=== PATIENT | female | born 1965 ===

== ENCOUNTER 2017-04-19 20:49 | Emergency (ER) | payer OTHER ==
--- NOTE | 2017-04-19 21:43 | DIAGNOSTIC IMAGING REPORT ---
PROCEDURE: XR TOE - LEFT (fifth toe) INDICATION: TRAUMA/INJURY TECHNIQUE: Three views. COMPARISON: None. FINDINGS: Osseous structures and joint spaces are normal. IMPRESSION: 1. Normal left fifth toe.
--- NOTE | 2017-04-19 21:44 | ED ORDER SUMMARY ---
..... Patient: ALLEN, MAUDE E OrderSheet [facility] VisitID: [id number] [place] [address] 51y, F Registration Date/Time: 04/19/2017 ORDER SHEET Weight: 111.1 kg (stated) Allergies: Celebrex, Cilantro, Icy Hot, Spironolactone, Tape, Vicodin GENERAL ORDERS: Toe Left Urgent (21:13 04/19/2017 Sheeba P.A.-C) (Ack 21:18 AMcQuoid ER Tech1) (21:39 RFay) Martinez Tape Toes (21:44 04/19/2017 Sheeba Bustamante.A.-C) (22:08 Jennifer Elder) MEDICATION ORDERS: IV FLUIDS: ORDER SHEET NOTES: [Electronically signed by Ria Bernstein R.N. (22:12 04/19/2017)] [Electronically signed by Rina BridgesABronson-Mary Beth (22:17 04/19/2017)] [Electronically locked/signed by Ria Bernstein R.N. (22:12 04/19/2017)]
--- NOTE | 2017-04-19 21:44 | ED ORDER SUMMARY ---
..... Patient: ALLEN, MAUDE E OrderSheet [facility] VisitID: [id number] [place] [address] 51y, F Registration Date/Time: 04/19/2017 ORDER SHEET Weight: 111.1 kg (stated) Allergies: Celebrex, Cilantro, Icy Hot, Spironolactone, Tape, Vicodin GENERAL ORDERS: Toe Left Urgent (21:13 04/19/2017 Sheeba P.A.-C) (Ack 21:18 AMcQuoid ER Tech1) (21:39 RFay) Martinez Tape Toes (21:44 04/19/2017 Sheeba Bustamante.A.-C) (22:08 Jennifer Elder) MEDICATION ORDERS: IV FLUIDS: ORDER SHEET NOTES: [Electronically signed by Ria Bernstein R.N. (22:12 04/19/2017)] [Electronically signed by Rina BridgesABronson-Mary Beth (22:17 04/19/2017)] [Electronically locked/signed by Ria Bernstein R.N. (22:12 04/19/2017)]
--- NOTE | 2017-04-19 21:44 | ED CLINICAL REPORT ---
Clinical Report - Physicians/Mid Levels [facility] [address] [place] [address] 04/19/2017 20:51 Patient: MAUDE ALLEN Time Seen: 21:14 Apr 19 2017. Arrived- By private vehicle. Historian- patient. HISTORY OF PRESENT ILLNESS Chief Complaint: Injury to the left 5th (small) toe. The injury happened just prior to arrival. The patient sustained a direct blow and crush injury. Occurred at home. (Patient reports stubbing her left small toe into furniture that they recently rearranged. Patient was not wearing shoes at the time. sHe denies prior injury to the left small toe. NO bleeding.). REVIEW OF SYSTEMS No tingling. She has no pain on weight bearing. All systems otherwise negative, except as recorded above. PAST HISTORY The patient has had a prior injury to the same area. SOCIAL HISTORY No alcohol use. ADDITIONAL NOTES The nursing notes have been reviewed. PHYSICAL EXAM Vital Signs: 04/19/2017 20:56 BP: 152/99. HR: 91. RR: 17. O2 saturation: 99%. Temp: 97.6 F. Pain level now: 8/10. Appearance: Alert. Head: Head atraumatic. ENT: Nose normal. Neck: Normal inspection. CVS: Normal heart rate and rhythm. Heart sounds normal. Respiratory: No respiratory distress. Breath sounds normal. Skin: Skin intact. Skin warm. Extremities: Left dorsal foot. No tenderness or laceration. Left fifth toe: mild tenderness and swelling and small ecchymosis. (no nail injury). No ankle injury. Gait: Limping gait. Neuro, Vascular and Tendons: Vascular status intact. Motor intact. Neuro: Oriented X 3. LABS, X-RAYS, AND EKG Lt Toes X-ray: (IMPRESSION: 1. Normal left fifth toe. Electronically Final signed by:Caleb Khan MD 04/19/2017 9:37:08 PM). PROGRESS AND PROCEDURES Course of Care: ecchymosis of the proximal left toe, fifth digit. No laceration and nail bed injury. Patient has medications at home for pain, asked to use anti-inflammatory, as well as Motrin as needed. No other injuries. Instructed not to drive and take narcotics. Patient is stable. Symptoms better. Patient/family counseled. Disposition: Discharged. Condition: good. CLINICAL IMPRESSION Contusion to the left 5th toe. Crush injury to the left 5th toe. INSTRUCTIONS Apply ice. You may walk and bear weight as tolerated. (your xray looks great). (Electronically signed by Rina Bridges P.A.-C 04/19/2017 22:17)
--- NOTE | 2017-04-19 21:44 | ED NURSING NOTES ---
Clinical Report - Nurses [facility] [address] [place] [address] 04/19/2017 20:51 Patient: MAUDE ALLEN TRIAGE Triage time 20:56 Apr 19 2017. Acuity: LEVEL 5. Chief Complaint: LEFT LOWER EXTREMITY PAIN and SWELLING. Location of symptoms- left 5th toe (pt reports stubbing her toe on furniture today at [address], pts 5th toe is bruised, pt "I took an extra percocet 10 and it isn't touching the pain"). Alert. No acute distress. SEPSIS SCREEN: Sepsis Screen. Negative (no infection suspected/documented). --21:02 Krystle Snowden R.N. 20:56 04/19/17. BP: 152/99. HR: 91. RR: 17. O2 saturation: 99%. Temp: 97.6 F. Pain level now: 05/14. --21:02 Krystle Snowden R.N. Weight: 111.1 kg stated. Height/Length: 64 inches Per Patient. BMI: 42.1. --21:00 Krystle Snowden R.N. Medications Atorvastatin Calcium Oral (Tablet 10 mg) 1/2 tablet, daily. Cymbalta Oral. Lisinopril Oral (Tablet 10 mg) 1 tablet, daily. OxyCODONE HCl Oral (Tablet 10 mg) 1 tablet, 3x a day. TraZODone HCl Oral (Tablet 150 mg) 1 tablet, daily. --20:59 Krystle Snowden R.N. Medication/allergy information source: the patient. --21:02 Krystle Snowden R.N. Allergies Celebrex. Cilantro. Icy Hot. Spironolactone. Tape. Vicodin. --20:59 Krystle Snowden R.N. History Arrived by private vehicle. Historian: patient. Injury occurred. This occurred today. Occurred at home. She has had trouble walking. 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 PAST MEDICAL HX: Tetanus status: up-to-date. Immunizations: up-to-date. The patient has had a hysterectomy. SOCIAL HX: Smoker- current status unknown (cigarette). No alcohol use or drug use. No infectious disease exposure. ABUSE ASSESSMENT: No report of abuse. SELF HARM ASSESSMENT: A self harm assessment was performed. The patient answered "no" to the question "Do you have thoughts of harming or killing yourself?". FALL RISK ASSESSMENT: Fall risk assessment completed. No fall risk identified. NUTRITIONAL RISK ASSESSMENT: The nutritional risk assessment revealed no deficiencies. FUNCTIONAL ASSESSMENT: Functional assessment: no impairments noted. LEARNING NEEDS ASSESSMENT: The learning needs assessment revealed no barriers. SKIN INTEGRITY ASSESSMENT: Skin integrity risk assessment completed. No skin integrity risk identified. --21:02 Krystle Snowden R.N. PROBLEMS: Abscess [Chronic]. --20:59 Krystle Snowden R.N. Abscess. UTI - Urinary Tract Infection. Leukocytosis. Renal Failure. Hyperkalemia. Laceration. Syncope. Hypotension. Wrist Fracture. Hypertension. Chest Wall Pain. Carpal Tunnel Syndrome. Depression. Neck Pain. --20:59 Krystle Snowden R.N. Sepsis [RuleOut]. --20:59 Krystle Snowden R.N. ADDITIONAL SURGERIES: Hysterectomy. Oophorectomy. --20:59 Krystle Snowden R.N. PHYSICAL ASSESSMENT Ambulatory to room. GENERAL / NEURO / PSYCH: Oriented X 4. Alert. Appears in no acute distress. Appears in pain. EXTREMITIES: Extremity pulses are within normal limits. Neuro-vascular status intact to the extremity. No lower extremity edema. Left fifth toe: ecchymosis. SKIN: Skin intact. Skin is warm and dry. --21:02 Krystle Snowden R.N. NURSING PROGRESS NOTES Patient identifiers checked. Call light placed in reach. Side rails up. Bed placed in lowest position. Brakes of bed on. Patient ready for evaluation- chart flagged. Patient waiting for evaluation. --21:03 Krystle Snowden R.N. 21:55. ( Left 4th and 5th toes tera-taped together.). --22:09 Ria Bernstein R.N. DISPOSITION / DISCHARGE 22:00. Condition at departure: improved. No learning barriers present. Patient verbalized understanding. Written instructions provided in Faroese. The patient was discharged home. She left the Emergency Department ambulatory and via private vehicle. Patient driving. Medication list reviewed and validated. --22:11 Ria Bernstein R.N. 22:00 04/19/17. BP: 140/92. HR: 94. RR: 20. O2 saturation: 98%. Temp: deferred. Pain level now: 04/13. 20:56 04/19/17. BP: 152/99. HR: 91. RR: 17. O2 saturation: 99%. Temp: 97.6 F. Pain level now: 05/14. --22:11 Ria Bernstein R.N. Locked/Released at 04/19/2017 22:12 by Ria Bernstein R.N.
--- NOTE | 2017-04-19 21:44 | ED NURSING NOTES ---
Clinical Report - Nurses [facility] [address] [place] [address] 04/19/2017 20:51 Patient: MAUDE ALLEN TRIAGE Triage time 20:56 Apr 19 2017. Acuity: LEVEL 5. Chief Complaint: LEFT LOWER EXTREMITY PAIN and SWELLING. Location of symptoms- left 5th toe (pt reports stubbing her toe on furniture today at [address], pts 5th toe is bruised, pt "I took an extra percocet 10 and it isn't touching the pain"). Alert. No acute distress. SEPSIS SCREEN: Sepsis Screen. Negative (no infection suspected/documented). --21:02 Krystle Snowden R.N. 20:56 04/19/17. BP: 152/99. HR: 91. RR: 17. O2 saturation: 99%. Temp: 97.6 F. Pain level now: 05/14. --21:02 Krystle Snowden R.N. Weight: 111.1 kg stated. Height/Length: 64 inches Per Patient. BMI: 42.1. --21:00 Krystle Snowden R.N. Medications Atorvastatin Calcium Oral (Tablet 10 mg) 1/2 tablet, daily. Cymbalta Oral. Lisinopril Oral (Tablet 10 mg) 1 tablet, daily. OxyCODONE HCl Oral (Tablet 10 mg) 1 tablet, 3x a day. TraZODone HCl Oral (Tablet 150 mg) 1 tablet, daily. --20:59 Krystle Snowden R.N. Medication/allergy information source: the patient. --21:02 Krystle Snowden R.N. Allergies Celebrex. Cilantro. Icy Hot. Spironolactone. Tape. Vicodin. --20:59 Krystle Snowden R.N. History Arrived by private vehicle. Historian: patient. Injury occurred. This occurred today. Occurred at home. She has had trouble walking. 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 PAST MEDICAL HX: Tetanus status: up-to-date. Immunizations: up-to-date. The patient has had a hysterectomy. SOCIAL HX: Smoker- current status unknown (cigarette). No alcohol use or drug use. No infectious disease exposure. ABUSE ASSESSMENT: No report of abuse. SELF HARM ASSESSMENT: A self harm assessment was performed. The patient answered "no" to the question "Do you have thoughts of harming or killing yourself?". FALL RISK ASSESSMENT: Fall risk assessment completed. No fall risk identified. NUTRITIONAL RISK ASSESSMENT: The nutritional risk assessment revealed no deficiencies. FUNCTIONAL ASSESSMENT: Functional assessment: no impairments noted. LEARNING NEEDS ASSESSMENT: The learning needs assessment revealed no barriers. SKIN INTEGRITY ASSESSMENT: Skin integrity risk assessment completed. No skin integrity risk identified. --21:02 Krystle Snowden R.N. PROBLEMS: Abscess [Chronic]. --20:59 Krystle Snowden R.N. Abscess. UTI - Urinary Tract Infection. Leukocytosis. Renal Failure. Hyperkalemia. Laceration. Syncope. Hypotension. Wrist Fracture. Hypertension. Chest Wall Pain. Carpal Tunnel Syndrome. Depression. Neck Pain. --20:59 Krystle Snowden R.N. Sepsis [RuleOut]. --20:59 Krystle Snowden R.N. ADDITIONAL SURGERIES: Hysterectomy. Oophorectomy. --20:59 Krystle Snowden R.N. PHYSICAL ASSESSMENT Ambulatory to room. GENERAL / NEURO / PSYCH: Oriented X 4. Alert. Appears in no acute distress. Appears in pain. EXTREMITIES: Extremity pulses are within normal limits. Neuro-vascular status intact to the extremity. No lower extremity edema. Left fifth toe: ecchymosis. SKIN: Skin intact. Skin is warm and dry. --21:02 Krystle Snowden R.N. NURSING PROGRESS NOTES Patient identifiers checked. Call light placed in reach. Side rails up. Bed placed in lowest position. Brakes of bed on. Patient ready for evaluation- chart flagged. Patient waiting for evaluation. --21:03 Krystle Snowden R.N. 21:55. ( Left 4th and 5th toes tera-taped together.). --22:09 Ria Bernstein R.N. DISPOSITION / DISCHARGE 22:00. Condition at departure: improved. No learning barriers present. Patient verbalized understanding. Written instructions provided in Kittitian. The patient was discharged home. She left the Emergency Department ambulatory and via private vehicle. Patient driving. Medication list reviewed and validated. --22:11 Ria Bernstein R.N. 22:00 04/19/17. BP: 140/92. HR: 94. RR: 20. O2 saturation: 98%. Temp: deferred. Pain level now: 04/13. 20:56 04/19/17. BP: 152/99. HR: 91. RR: 17. O2 saturation: 99%. Temp: 97.6 F. Pain level now: 05/14. --22:11 Ria Bernstein R.N. Locked/Released at 04/19/2017 22:12 by Ria Bernstein R.N.
--- NOTE | 2017-04-19 21:44 | ED CLINICAL REPORT ---
Clinical Report - Physicians/Mid Levels [facility] [address] [place] [address] 04/19/2017 20:51 Patient: MAUDE ALLEN Time Seen: 21:14 Apr 19 2017. Arrived- By private vehicle. Historian- patient. HISTORY OF PRESENT ILLNESS Chief Complaint: Injury to the left 5th (small) toe. The injury happened just prior to arrival. The patient sustained a direct blow and crush injury. Occurred at home. (Patient reports stubbing her left small toe into furniture that they recently rearranged. Patient was not wearing shoes at the time. sHe denies prior injury to the left small toe. NO bleeding.). REVIEW OF SYSTEMS No tingling. She has no pain on weight bearing. All systems otherwise negative, except as recorded above. PAST HISTORY The patient has had a prior injury to the same area. SOCIAL HISTORY No alcohol use. ADDITIONAL NOTES The nursing notes have been reviewed. PHYSICAL EXAM Vital Signs: 04/19/2017 20:56 BP: 152/99. HR: 91. RR: 17. O2 saturation: 99%. Temp: 97.6 F. Pain level now: 8/10. Appearance: Alert. Head: Head atraumatic. ENT: Nose normal. Neck: Normal inspection. CVS: Normal heart rate and rhythm. Heart sounds normal. Respiratory: No respiratory distress. Breath sounds normal. Skin: Skin intact. Skin warm. Extremities: Left dorsal foot. No tenderness or laceration. Left fifth toe: mild tenderness and swelling and small ecchymosis. (no nail injury). No ankle injury. Gait: Limping gait. Neuro, Vascular and Tendons: Vascular status intact. Motor intact. Neuro: Oriented X 3. LABS, X-RAYS, AND EKG Lt Toes X-ray: (IMPRESSION: 1. Normal left fifth toe. Electronically Final signed by:Caleb Khan MD 04/19/2017 9:37:08 PM). PROGRESS AND PROCEDURES Course of Care: ecchymosis of the proximal left toe, fifth digit. No laceration and nail bed injury. Patient has medications at home for pain, asked to use anti-inflammatory, as well as Motrin as needed. No other injuries. Instructed not to drive and take narcotics. Patient is stable. Symptoms better. Patient/family counseled. Disposition: Discharged. Condition: good. CLINICAL IMPRESSION Contusion to the left 5th toe. Crush injury to the left 5th toe. INSTRUCTIONS Apply ice. You may walk and bear weight as tolerated. (your xray looks great). (Electronically signed by Rina Bridges P.A.-C 04/19/2017 22:17)
--- NOTE | 2017-04-19 22:17 | ED MED RECONCILIATION SUMMARY ---
Patient: MAUDE ALLEN Medication Reconciliation Report [facility] VisitID: [id number] [place] [address] 51y, F Registration Date/Time: 04/19/2017 Weight: 111.1 kg Height/Length: 64 in. BMI: 42.1 ALLERGIES: Celebrex, Cilantro, Icy Hot, Spironolactone, Tape, Vicodin The patient's Home Medications are listed below: THE FOLLOWING MEDICATIONS NEED TO BE RECONCILED: Atorvastatin Calcium Oral (10 mg) 1/2 tablet, daily Cymbalta Oral Lisinopril Oral (10 mg) 1 tablet, daily OxyCODONE HCl Oral (10 mg) 1 tablet, 3x a day TraZODone HCl Oral (150 mg) 1 tablet, daily The source(s) of the original Home Medication information: patient The following Medications were given to the patient in the Emergency Department: None. The following Medications were prescribed to the patient: None.
--- NOTE | 2017-04-19 22:17 | ED DISCHARGE INSTRUCTIONS ---
Patient: MAUDE ALLEN General Instructions [facility] VisitID: [id number] [place] [address] 51y, F Registration Date/Time: 04/19/2017 Contusion to the left 5th toe. Crush injury to the left 5th toe. INSTRUCTIONS Apply ice. You may walk and bear weight as tolerated. (your xray looks great). ADDITIONAL INFORMATION Crush Injury, Foot (No Fx) A crush injury to your foot causes local pain, swelling, and sometimes bruising. There are no broken bones. This injury takes from a few days to a few weeks to heal. If the toenail has been severely injured, it may fall off in 12 weeks. A new one will usually start to grow back within a month. Home care The following guidelines will help you care for your wound at home: You may be given a splint, cast, shoe, or boot to prevent movement at the injury. Unless you were told otherwise, use crutches or a walker anddo notbear weight on the injured foot until cleared by your doctor to do so. (Crutches and walkers can be rented at many pharmacies and surgical/orthopedic supply stores). Do not put weight on a splint; it will break. Keep your leg elevated to reduce pain and swelling. When sleeping, place a pillow under the injured leg. When sitting, support the injured leg so it is level with your waist. This is very important during the first 48 hours. Apply an ice pack (ice cubes in a plastic bag, wrapped in a towel) over the injured area for 20 minutes every 12 hours the first day for pain relief. Continue this 34 times a day until the pain and swelling goes away. You may use acetaminophen or ibuprofen to control pain, unless another pain medicine was prescribed.If you have chronic liver or kidney disease or ever had a stomach ulcer or GI bleeding, talk with your doctor before using these medicines. Keep the splint/cast/boot/shoe dry. When bathing, protect it with a large plastic bag, rubber-banded at the top end. If a fiberglass splint/cast or boot gets wet, you can dry it with a hair-dryer. Unless told otherwise, you can remove a boot or shoe to bathe. If your injury includes exposed cuts or scrapes, clean these daily with soap and water. Apply antibiotic ointment. Watch for the signs of infection listed below. Follow-up care Follow up with your doctor as advised. Return sooner if you are not starting to improve within the nextthreedays. If you were given a splint, it may be changed to a cast or boot at your follow-up visit. Note:X-rays will be reviewed by a radiologist. You will be notified of any new findings that may affect your care. When to seek medical care Get prompt medical attention if any of the following occur: The plaster cast or splint becomes wet or soft The fiberglass cast or splint remains wet for more than 24 hours Increased tightness or pain under the cast or splint Toes become swollen, cold, blue, numb, or tingly Redness, warmth, swelling, drainage from the wound, or foul odor from a cast or splint Fever of 100.4F(38C) or higher, or as directed by your health care provider You have been given the following additional information: Crush Injury, Foot/Toe You may walk and bear weight as tolerated. (Electronically signed by Rina Bridges P.A.-C 04/19/2017 22:17)
--- NOTE | 2017-04-19 22:17 | ED MAR SUMMARY ---
..... Medication Administration Record [facility] [address] [place] [id number] Patient: MAUDE ALLEN Visit ID: [id number] 51y, F Weight: 111.1 kg Height/Length: 64 in BMI: 42.1 ALLERGIES: Celebrex, Cilantro, Icy Hot, Spironolactone, Tape, Vicodin
--- NOTE | 2017-04-19 22:17 | ED MAR SUMMARY ---
..... Medication Administration Record [facility] [address] [place], [place] [id number] Patient: MAUDE ALLEN Visit ID: [id number] 51y, F Weight: 111.1 kg Height/Length: 64 in BMI: 42.1 ALLERGIES: Celebrex, Cilantro, Icy Hot, Spironolactone, Tape, Vicodin
--- NOTE | 2017-04-19 22:17 | ED MED RECONCILIATION SUMMARY ---
Patient: MAUDE ALLEN Medication Reconciliation Report [facility] VisitID: [id number] [place] [address] 51y, F Registration Date/Time: 04/19/2017 Weight: 111.1 kg Height/Length: 64 in. BMI: 42.1 ALLERGIES: Celebrex, Cilantro, Icy Hot, Spironolactone, Tape, Vicodin The patient's Home Medications are listed below: THE FOLLOWING MEDICATIONS NEED TO BE RECONCILED: Atorvastatin Calcium Oral (10 mg) 1/2 tablet, daily Cymbalta Oral Lisinopril Oral (10 mg) 1 tablet, daily OxyCODONE HCl Oral (10 mg) 1 tablet, 3x a day TraZODone HCl Oral (150 mg) 1 tablet, daily The source(s) of the original Home Medication information: patient The following Medications were given to the patient in the Emergency Department: None. The following Medications were prescribed to the patient: None.
== END 2017-04-19 22:00 | disposition home or self-care (01) ==
LOC: ED SRH 20:49
DX: S97.122A Crushing injury of left lesser toe(s), initial encounter (principal); S90.122A Contusion of left lesser toe(s) without damage to nail, initial encounter; W22.09XA Striking against other stationary object, initial encounter; Y93.9 Activity, unspecified; Y92.009 Unspecified place in unspecified non-institutional (private) residence as the place of occurrence of the external cause; Y99.9 Unspecified external cause status; Z88.5 Allergy status to narcotic agent